=== PATIENT | female | born 1990 | race American Indian/Alaskan Native ===

== ENCOUNTER 2017-07-18 16:58 | Outpatient (CLI) | payer OTHER ==
[2017-07-18 17:47] VITALS: BP 123/77
--- NOTE | 2017-07-18 20:50 | Ultrasound Report ---
FINAL REPORT EXAM: US OB BPP WO NON-STRESS HISTORY: IRREGULAR FHR TECHNIQUE: Real-time sonography was performed of the gravid uterus for biophysical profile and images are submitted for interpretation. PRIORS: None. FINDINGS: There is a single fetus in the uterus in a cephalic presentation. The placenta is anterior. The amniotic fluid index is normal at 18.4 cm. The heart is beating at a rate of 135 beats per minute. Biophysical profile: Breathin Movement: 2 Tone: 2 Fluid volume: 2 IMPRESSION: Normal biophysical profile, 09/21
--- NOTE | 2017-07-18 20:52 | Ultrasound Report ---
FINAL REPORT EXAM: US OB LIMITED HISTORY: IRREGULAR FHR TECHNIQUE: Real-time sonography was performed of the gravid uterus for biophysical profile and images are submitted for interpretation. PRIORS: None. FINDINGS: There is a single fetus in the uterus in a cephalic presentation. The placenta is anterior. The amniotic fluid index is normal at 18.4 cm. The heart is beating at a rate of 135 beats per minute. Biophysical profile: Breathin Movement: 2 Tone: 2 Fluid volume: 2 IMPRESSION: Normal biophysical profile, 09/21
== END 2017-07-18 18:59 | disposition home or self-care (01) ==
LOC: TRG 16:58
PROVIDERS: ATTEND Obstetrics & Gynecology
DX: O47.1 False labor at or after 37 completed weeks of gestation (principal); Z3A.38 38 weeks gestation of pregnancy
CPT/HCPCS: 59025; 76815; 76819

== ENCOUNTER 2017-07-19 10:36 | Outpatient (CLI) | payer OTHER | END 2017-07-19 12:07 | disposition home or self-care (01) | LOC: TRG 10:36 | PROVIDERS: ATTEND Obstetrics & Gynecology | DX: O47.1 False labor at or after 37 completed weeks of gestation (principal); Z3A.39 39 weeks gestation of pregnancy | CPT/HCPCS: 59025 ==

== ENCOUNTER 2017-07-23 23:08 | Inpatient (IN) | payer OTHER ==
[2017-07-23] MEDS ORDERED: PITOCin/NS 30 UNIT/500ML 30 UNITS/500 ML BAG IV SCH (23:45)
[2017-07-23] MEDS ORDERED: LACTATED RINGERS 1,000 ML IV SCH (23:45)
[2017-07-23] MEDS ORDERED: PITOCin/NS 20 UNIT/1000ML DRIP 20 UNITS/1,000 ML BAG IV SCH (23:45)
[2017-07-23] MEDS ORDERED: POLYCILLIN/NS 2 GM/100 ML 2 GM/100 ML BAG IV ONE (23:53)
[2017-07-23] MEDS ORDERED: STADOL IV PRN (23:53)
[2017-07-23] MEDS ORDERED: BRETHINE SUB-Q PRN (23:53)
[2017-07-23] MEDS ORDERED: BRETHINE IVP PRN (23:53)
[2017-07-23] MEDS ORDERED: XYLOCAINE 2% INFILTRATI ONE (23:53)
[2017-07-23] MEDS ORDERED: ZOFRAN IV PRN (23:53)
[2017-07-23] MEDS ORDERED: ePHEDrine SULFATE IV PRN (23:53)
[2017-07-23] MEDS ORDERED: MINERAL OIL PO PRN (23:53)
--- NOTE | 2017-07-24 00:03 | History and Physical Report ---
History of Present Illness Date of examination: 07/23/17 Date of admission: 07/23/17 23:28 Chief complaint: Labor History of present illness: Pt is a 26yo BF EDC 07/26/17; EGA 39 5/7 weeks presents to L&D complaining of RUC's q 3-4 mins. She received care at [facility] since 23 weeks and course has been unremarkable except for arrhythmia - not evaluated by [facility] or Perinatologist. [facility] records are available, but GBS is unknown. Past History Past Medical History: no pertinent history Past Surgical History: no surgical history Family/Genetic History: none Social history: no significant social history, - Obstetrical History Expected Date of Delivery: 07/26/17 Actual Gestation: 39 Week(s) 5 Day(s) : 3 Medications and Allergies Allergies Allergy/AdvReac Type Severity Reaction Status Date / Time No Known Allergies Allergy Verified 07/24/17 00:02 Review of Systems All systems: negative - Vital Signs Vital signs: Vital Signs Pulse BP Pulse Ox 66 130/80 100 07/19/17 11:02 07/19/17 11:02 07/19/17 11:02 Temp Pulse Resp BP Pulse Ox 94 H 128/84 99 07/23/17 23:50 07/23/17 23:48 07/23/17 23:50 - Physical Exam Breasts: Positive: deferred Cardiovascular: Regular rate Lungs: Positive: Clear to auscultation Abdomen: Positive: normal appearance Genitourinary (Female): Positive: normal external genitalia Uterus: Positive: enlarged Extremities: Positive: normal - Obstetrical FHR: category 1 FHR comments: arrhythmia Uterine Contraction Monitor Mode: External Cervical Dilatation: 8 Cervical Effacement Percentage: 90 station: -1 Uterine Contraction Pattern: Regular Uterine Tone Measurement Phase: Contraction Uterine Contraction Intensity: Moderate Results Result Diagrams: 07/23/17 23:50 All other labs normal. Assessment and Plan - Patient Problems (1) 39 weeks gestation of Onset Date: 07/24/17 Current Visit: Yes Status: Acute Plan to address problem: A: IUP @ 39 5/7 weeks in labor arrhythmia Unknown GBS P: Admit to L&D for expectant vaginal delivery IV Ampicillin
[2017-07-24 00:29] LABS: Hemoglobin 11.1 gm/dl (10.1-14.3); Mean Corpuscular HGB Conc 33 % (30-34); Mean Corpuscular Hemoglobin 26 pg (28-32); Mean Corpuscular Volume 81 fl (79-97); Platelet Count 200 K/mm3 (140-440); Red Blood Count 4.22 M/mm3 (3.65-5.03); Red Cell Distribution Width 15.6 % (13.2-15.2)
[2017-07-24] MEDS: PITOCin/NS 20 UNIT/1000ML DRIP 20 UNITS/1,000 ML BAG IV SCH ×2 (00:56→01:46)
--- NOTE | 2017-07-24 01:02 | Procedure Note ---
OB Delivery Note - Delivery Date of Delivery: 07/24/17 Surgeon: SADA PRIETO Estimated blood loss: other (150cc) - Vaginal Delivery presentation: vertex Delivery position: OA Intrapartum events: precipitous labor- <3hr Delivery induction: none Delivery augmentation: rupture of membranes Delivery monitor: external FHT, external uterine Route of delivery: Delivery placenta: spontaneous Delivery cord: 3 umbilical vessels Episiotomy: none Delivery laceration: none Anesthesia: none Delivery comments: delivered OA and placed on Mom's chest for [id number] bonding and delayed cord clamping, cut by Dad - A at 1 minute: 8 at 5 minutes: 9 Gender: Male (3308gms)
[2017-07-24] MEDS ORDERED: LANSINOH TP PRN (01:03)
[2017-07-24] MEDS ORDERED: TUCKS PAD TP PRN (01:03)
[2017-07-24] MEDS ORDERED: DULCOLAX PR PRN (01:03)
[2017-07-24] MEDS ORDERED: ZOFRAN IV PRN (01:03)
[2017-07-24] MEDS ORDERED: TYLENOL PO PRN (01:03)
[2017-07-24] MEDS ORDERED: PHENERGAN PO PRN (01:03)
[2017-07-24] MEDS ORDERED: MILK OF MAGNESIA PO PRN (01:03)
[2017-07-24] MEDS ORDERED: NORCO 5/325 PO PRN (01:03)
[2017-07-24] MEDS ORDERED: PHENERGAN PR PRN (01:03)
[2017-07-24] MEDS ORDERED: BENADRYL PO PRN (01:03)
[2017-07-24] MEDS ORDERED: SODIUM CHLORIDE FLUSH SYRINGE 10 ML IV PRN (02:00)
[2017-07-24] MEDS ORDERED: AMPICILLIN/NS 1 GM/50 ML 1 GM/50 ML BAG IV SCH (04:00)
[2017-07-24] MEDS: MOTRIN PO SCH ×4 (05:53→23:22)
[2017-07-24] MEDS: PRENATAL VITAMIN PO SCH (10:53)
[2017-07-24] MEDS: FEOSOL PO SCH ×2 (10:53→21:24)
[2017-07-24] MEDS: COLACE PO SCH ×3 (10:53→21:24)
[2017-07-24 13:45] LABS: Hematocrit 31.8 % (30.3-42.9); Hemoglobin 10.5 gm/dl (10.1-14.3)
[2017-07-25] MEDS ORDERED: M-M-R II VACCINE SUB-Q ONE (01:03)
[2017-07-25] MEDS ORDERED: BOOSTRIX IM ONE (06:00)
[2017-07-25] MEDS: COLACE PO SCH ×2 (09:53→23:53)
[2017-07-25] MEDS: FEOSOL PO SCH ×2 (09:53→23:53)
[2017-07-25] MEDS: PRENATAL VITAMIN PO SCH (09:53)
--- NOTE | 2017-07-25 10:17 | Progress Note ---
Assessment and Plan - Patient Problems (1) 39 weeks gestation of Onset Date: 07/24/17 Current Visit: Yes Status: Resolved (2) (normal spontaneous vaginal delivery) Onset Date: 07/25/17 Current Visit: Yes Status: Resolved Plan to address problem: A: S/P - PPD #1 Doing well Asymptomatic anemia - stable P: May go home today Subjective - Subjective Date of service: 07/25/17 Principal diagnosis: s/p - PPD #1 Interval history: Pt is feeling well without complaints. Bleeding improved. Patient reports: appetite normal, voiding normally, pain well controlled, flatus , ambulating normally, no nauseated [place]: doing well, nursing well Objective - Vital Signs Latest vital signs: Vital Signs Temp Pulse Resp BP BP Pulse Ox 07/25/17 08:30 97.8 F 68 16 121/86 100 07/25/17 01:00 98 F 90 113/75 07/24/17 18:37 18 07/24/17 17:32 97.9 F 90 18 111/75 07/24/17 12:00 18 07/24/17 11:22 98.1 F 88 18 118/81 Intake and Output 07/24/17 07/25/17 07/25/17 22:59 06:59 14:59 Intake Total 360 360 Balance 360 360 Intake: Oral 120 Intake, Free Water 360 240 Other: Total, Intake Amount 120 # Voids Void 1 1 - Exam Breasts: Present: deferred Cardiovascular: Present: Regular rate Lungs: Present: Clear to auscultation Abdomen: Present: normal appearance, soft Uterus: Present: normal, firm, fundal height below umbilicus Extremities: Present: normal - Labs Labs: Laboratory Tests 07/23/17 07/23/17 07/23/17 23:50 23:50 23:50 WBC 11.3 H RBC 4.22 Hgb 11.1 Hct 34.0 MCV 81 MCH 26 L MCHC 33 RDW 15.6 H Plt Count 200 RPR Nonreactive Blood Type O POSITIVE Antibody Screen Negative 07/24/17 13:14 WBC RBC Hgb 10.5 Hct 31.8 MCV MCH MCHC RDW Plt Count RPR Blood Type Antibody Screen
--- NOTE | 2017-07-25 14:53 | Discharge Summary ---
Providers - Providers Date of Admission: 07/23/17 23:28 Date of discharge: 07/25/17 Attending physician: SADA PRIETO Primary care physician: SADA PRIETO Hospitalization Reason for admission: active labor, IUP at term Delivery: Episiotomy: none Laceration: none Other procedures: none complications: none Discharge diagnosis: IUP at term delivered [place] baby: female Hospital course: Unremarkable. Condition at discharge: Good Disposition: DC-01 TO HOME OR SELFCARE - Discharge Diagnoses (1) 39 weeks gestation of Status: Resolved (2) (normal spontaneous vaginal delivery) Status: Resolved Plan - Discharge Medications Prescriptions: Ferrous Sulfate [Feosol 325 MG tab] 325 mg PO BID #60 tablet Ibuprofen [Motrin 600 MG tab] 600 mg PO Q6HR #30 tablet Vit-Fe Fumar-FA [ Vitamin] 1 each PO QDAY #30 tablet - Provider Discharge Summary Activity: routine, no sex for 6 weeks, no heavy lifting 4 weeks, no strenuous exercise Diet: routine Instructions: routine Additional instructions: [] Smoking cessation referral if applicable(refer to patient education folder for contact #) [] Refer to [facility] Booklet Call your doctor immediately for: * Fever > 100.5 * Heavy vaginal bleeding ( >1 pad per hour) * Severe persistent headache * Shortness of breath * Reddened, hot, painful area to leg or breast * Drainage or odor from incision. * Keep incision clean and dry at all times and follow doctor's instructions regarding bathing/showering - Follow up plan Follow up: SADA PRIETO MD [Primary Care Provider] - 6 Weeks
[2017-07-25] MEDS: MOTRIN PO SCH (23:53)
[2017-07-26] MEDS: MOTRIN PO SCH (05:27)
[2017-07-26 19:34] VITALS: BP 126/79
== END 2017-07-26 13:40 | disposition home or self-care (01) | DRG 775 ==
LOC: TRG 23:08 → LD 23:28 → OB 07-24 03:08
PROVIDERS: ADMIT Obstetrics & Gynecology; ATTEND Obstetrics & Gynecology
PROC: 10E0XZZ Delivery of Products of Conception, External Approach (ICD-10-PCS; principal; 2017-07-24)
PROC: 3E0234Z Introduction of Serum, Toxoid and Vaccine into Muscle, Percutaneous Approach (ICD-10-PCS; 2017-07-25)
DX: O62.3 Precipitate labor (principal); O76 Abnormality in fetal heart rate and rhythm complicating labor and delivery; O36.8330 Maternal care for abnormalities of the fetal heart rate or rhythm, third trimester, not applicable or unspecified; O99.03 Anemia complicating the puerperium; D64.9 Anemia, unspecified; Z3A.39 39 weeks gestation of pregnancy; Z37.0 Single live birth; Z23 Encounter for immunization
CPT/HCPCS: 36415; 85014; 85018; 85027; 86592; 86850; 86900; 86901; 99211; A6250; G0463; J0290; J0595; J2590; J7120

== ENCOUNTER 2020-07-21 19:09 | Inpatient (IN) | payer MEDICAID, OTHER ==
[2020-07-21] MEDS ORDERED: MINERAL OIL 30 ML ORAL LIQD PO PRN (20:43)
[2020-07-21] MEDS ORDERED: LIDOCAINE (2%) 20 MG/1 ML VIAL 20 ML MDV INFILTRATI ONE (20:43)
[2020-07-21] MEDS ORDERED: NalbUPHINE 10 MG/1 ML INJ IV PRN (20:43)
[2020-07-21] MEDS ORDERED: PROMETHAZINE 25 MG TAB PO PRN ×2 (20:43→22:02)
[2020-07-21] MEDS ORDERED: ePHEDrine SULFATE 50 MG/1 ML INJ IV PRN (20:43)
[2020-07-21] MEDS ORDERED: TERBUTALINE 1 MG/1 ML INJ SUB-Q PRN (20:43)
[2020-07-21] MEDS ORDERED: AMPICILLIN/NS 2 GM/100 ML 2 GM/100 ML BAG IV ONE (20:43)
[2020-07-21] MEDS ORDERED: fentaNYL 100 MCG/2 ML INJ IV PRN (20:43)
[2020-07-21] MEDS ORDERED: LACTATED RINGERS 1,000 ML IV SCH (20:45)
[2020-07-21] MEDS ORDERED: OXYTOCIN DRIP 30 UNITS/500 ML BAG IV SCH ×2 (21:00)
[2020-07-21] MEDS ORDERED: miSOPROStol 100 MCG TAB VG ONE (21:20)
[2020-07-21] MEDS ORDERED: miSOPROStol 100 MCG TAB ONE (21:21)
[2020-07-21 21:40] LABS: Hemoglobin 11.6 gm/dl (10.1-14.3); Mean Corpuscular HGB Conc 33 % (30-34); Mean Corpuscular Volume 81 fl (79-97); Platelet Count 233 K/mm3 (140-440); Red Blood Count 4.34 M/mm3 (3.65-5.03); Red Cell Distribution Width 16.1 % (13.2-15.2)
[2020-07-21] MEDS ORDERED: WITCH HAZEL/ GLYCERIN PAD TP PRN (22:02)
[2020-07-21] MEDS ORDERED: oxyCODONE /ACETAMINOPHEN 5-325MG TAB PO PRN (22:02)
[2020-07-21] MEDS ORDERED: MAGNESIUM HYDROXIDE (MOM) ORAL LIQD UDC PO PRN (22:02)
[2020-07-21] MEDS ORDERED: BENZOCAINE/MENTHOL 20/0.5% TOP SPRAY 56 GM TP PRN (22:02)
[2020-07-21] MEDS ORDERED: ONDANSETRON 4 MG/2 ML INJ IV PRN (22:02)
[2020-07-21] MEDS ORDERED: LANOLIN/ZINC/DIMETHICONE (LANSINOH) 7 GM TP PRN (22:02)
[2020-07-21] MEDS ORDERED: PROMETHAZINE 25 MG RECT SUPP PR PRN (22:02)
[2020-07-21] MEDS ORDERED: diphenhydrAMINE 25 MG CAP PO PRN (22:02)
[2020-07-22] MEDS: IBUPROFEN 600 MG TAB PO SCH ×5 (00:12→23:44)
[2020-07-22] MEDS ORDERED: AMPICILLIN/NS 1 GM/50 ML 1 GM/50 ML BAG IV SCH (01:00)
[2020-07-22] MEDS: PRENATAL VIT27-FE FUMARATE-FOLIC ACID VIT TAB PO SCH (09:59)
[2020-07-22 23:15] LABS: Hematocrit 35.4 % (30.3-42.9); Hemoglobin 11.7 gm/dl (10.1-14.3)
[2020-07-23] MEDS: IBUPROFEN 600 MG TAB PO SCH ×3 (05:35→17:23)
[2020-07-23] MEDS: PRENATAL VIT27-FE FUMARATE-FOLIC ACID VIT TAB PO SCH (09:53)
[2020-07-23 16:17] VITALS: BP 115/72
== END 2020-07-23 18:38 | disposition home or self-care (01) | DRG 807 ==
LOC: TRG 19:09 → APU 19:36 → TRG 20:43 → OBSVTOIN 20:44 → LD 20:44 → OB 23:10
PROVIDERS: ADMIT Obstetrics & Gynecology; ATTEND Obstetrics & Gynecology
PROC: 10E0XZZ Delivery of Products of Conception, External Approach (ICD-10-PCS; principal; 2020-07-21)
DX: O77.0 Labor and delivery complicated by meconium in amniotic fluid (principal); Z37.0 Single live birth; Z3A.40 40 weeks gestation of pregnancy; O62.3 Precipitate labor
CPT/HCPCS: 36415; 59025; 85014; 85018; 85027; 86706; 86762; 86850; 86900; 86901; G0378; A6250; J2590; J3010